=== PATIENT | female | born 1940 | race American Indian/Alaskan Native ===

== ENCOUNTER 2022-07-07 07:02 | Day surgery (SDC) | payer MEDICARE, OTHER ==
[2022-07-07] MEDS ORDERED: ASPIRIN EC 325 MG TAB PO NR (07:31)
[2022-07-07 08:40] LABS: Calcium 10.3 mg/dL (8.4-10.2)
[2022-07-07 08:45] LABS: INR 0.87 (0.87-1.13)
[2022-07-07] MEDS: SODIUM CHLORIDE 0.9% 500 ML 500 ML IV SCH ×2 (09:01→11:19)
[2022-07-07 09:12] LABS: Hemoglobin 12.1 gm/dl (10.1-14.3); Red Blood Count 4.17 M/mm3 (3.65-5.03)
[2022-07-07 09:13] LABS: Basophils % (Auto) 0.3 % (0.0-1.8); Eosinophils # (Auto) 0.2 K/mm3 (0.0-0.4); Eosinophils % (Auto) 2.5 % (0.0-4.3); Lymphocytes # (Auto) 2.5 K/mm3 (1.2-5.4); Lymphocytes % (Auto) 31.5 % (13.4-35.0); Mean Corpuscular HGB Conc 33 % (30-34); Mean Corpuscular Volume 89 fl (79-97); Monocytes # (Auto) 0.7 K/mm3 (0.0-0.8); Monocytes % (Auto) 9.1 % (0.0-7.3); Platelet Count 255 K/mm3 (140-440); Red Cell Distribution Width 13.5 % (13.2-15.2)
[2022-07-07] MEDS ORDERED: HEPARIN/NS 5000 UNIT/500ML 1,000 ML IR ONE (09:19)
[2022-07-07] MEDS ORDERED: HEPARIN 10,000 UNITS/10 ML VIAL ONE ×2 (09:19→11:47)
[2022-07-07] MEDS ORDERED: LIDOCAINE (2%) 20 MG/1 ML VIAL 50 ML MDV INFILTRATI ONE (09:20)
[2022-07-07] MEDS ORDERED: MIDAZOLAM 2 MG/2 ML INJ ONE (09:20)
[2022-07-07] MEDS ORDERED: NITROGLYCERIN SYRINGE 3 ML ONE (09:20)
[2022-07-07] MEDS ORDERED: fentaNYL 100 MCG/2 ML INJ ONE (09:20)
[2022-07-07] MEDS ORDERED: VERAPAMIL 5 MG/2 ML INJ ONE (09:20)
--- NOTE | 2022-07-07 09:41 | Electrocardiograph Report ---
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
--- NOTE | 2022-07-07 12:56 | Cardiac Catherization Report ---
DATE OF SERVICE: 07/07/2022 CORONARY ANGIOPLASTY REPORT REASON FOR PROCEDURE: The patient is an 82-year-old woman who underwent a cardiac catheterization for unstable angina at an outside hospital. She was found with 2-vessel disease. There is a chronic total occlusion of the right coronary artery in its mid segment, with a distal perfusion by left to right collaterals. There is a long, 90% stenosis of the proximal circumflex artery. The LAD was relatively free of significant disease but had diffuse momf-zo-lepxmazd calcification. The angiograms were reviewed by the primary medicine tech and the patient was referred for coronary angioplasty and stenting of the circumflex, with a plan for medical therapy for the chronic total occlusion of the right coronary artery. The patient consented to this plan of limited revascularization. PROCEDURE: Unsuccessful coronary angioplasty of the circumflex artery. DESCRIPTION OF PROCEDURE: The patient was prepped and draped in a sterile fashion after informed consent. The right femoral artery was entered using Seldinger technique followed by placement of a 6-Turkish sheath. We selected a #3.5 XB guiding catheter and advanced to the left coronary ostium. Pre-intervention angiograms were taken. A 0.014-inch [employer] 50 guidewire was then introduced into the circumflex, and the lesional segment was crossed with a wire without difficulty. After wire placement, we attempted to transition a 2.5 mm balloon catheter to the lesional segment and after multiple attempts, this proved difficult due to the poorly compliant, tortuous and calcified circumflex vessel. The 2.5 mm catheter was then exchanged for a 1.5 mm balloon catheter, which also despite several attempts was unable to be transitioned to the lesional segment. After multiple unsuccessful attempts at balloon catheter placement, the attempted angioplasty was abandoned, the wires were removed and post-intervention angiogram showed the lesion unchanged and PABLO-3 flow maintained down the vessel. The patient was free of chest pain and hemodynamically stable. The limited revascularization plan will be abandoned and the patient will instead be referred to undergo 2-vessel coronary bypass of the circumflex and right coronary arteries. A left ventricular angiogram showed well preserved left ventricular systolic ejection fraction 60-65% and well-preserved wall motion in the inferior wall of the ventricle. CONCLUSION: 1. 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 2. Attempted angioplasty of the circumflex artery was unsuccessful. 3. Well preserved left ventricular systolic function with ejection fraction greater than 60-65%, well preserved inferior wall motion. RECOMMENDATIONS: The patient is clinically stable following attempted angioplasty, will be referred for CT surgery assessment for 2-vessel coronary bypass to the circumflex and right coronary arteries. TID: [id number] RECEIPT: [id number] ZEINA/LORIN MTDD
[2022-07-07] MEDS ORDERED: traMADol 50 MG TAB PO PRN (13:01)
--- NOTE | 2022-07-07 13:07 | Discharge Summary ---
Short Stay Discharge Plan Activity: advance as tolerated Weight Bearing Status: Non-Weight Bearing Diet: low fat, low cholesterol, low salt, diabetic Wound: keep clean and dry Special Instructions: no heavy lifting Follow up with: MOHINDER CALDERON [Other] - 7 Days LENI VELASQUEZ MD [Staff Physician] - 7 Days
[2022-07-07] MEDS ORDERED: SODIUM CHLORIDE 0.9% 1000 ML 1,000 ML IV SCH (13:15)
[2022-07-07 18:27] VITALS: BP 151/60
== END 2022-07-07 18:47 | disposition critical access hospital (66) ==
LOC: CATHLABREC 07:02
PROVIDERS: ATTEND Internal Medicine Cardiovascular Disease
DX: I25.110 Atherosclerotic heart disease of native coronary artery with unstable angina pectoris (principal); E78.00 Pure hypercholesterolemia, unspecified; I10 Essential (primary) hypertension; K21.9 Gastro-esophageal reflux disease without esophagitis; E11.9 Type 2 diabetes mellitus without complications; Z79.899 Other long term (current) drug therapy; Z79.4 Long term (current) use of insulin; Z98.890 Other specified postprocedural states; M19.90 Unspecified osteoarthritis, unspecified site; Z83.3 Family history of diabetes mellitus; Z82.49 Family history of ischemic heart disease and other diseases of the circulatory system
CPT/HCPCS: 36415; 80048; 82962; 84132; 85025; 85610; 85730; 92920; 93005; 93458; 99156; 99157; C1725; C1769; C1887; C1894; J1644; J1815; J2250; J3010; J3490; J7030; J7040; Q9967